=== PATIENT | female | born 1985 | race Caucasian/White ===

== ENCOUNTER 2024-12-07 15:19 | Emergency (ER) | payer OTHER, SELFPAY ==
[2024-12-07 15:19] VITALS: BMI 49.4
[2024-12-07 15:27] VITALS: BP 163/114
[2024-12-07 15:47] LABS: Urine Character Clear (Clear)
--- NOTE | 2024-12-07 16:00 | ED.GENMED ---
History of Present Illness
General
Chief Complaint: Crisis Evaluation
Source: patient
Exam Limitations: none
Time Seen by Provider: 12/07/24 15:39
Nursing documentation reviewed up to this point in time: agreed with
History of Present Illness
History of Present Illness:
39-year-old female with a past medical history of anxiety depression who presents to the emergency department for evaluation of suicidal ideation. Patient reports that she has had 'a tough couple of months' but does not feel comfortable sharing
specifically why things have been tough for her. She is willing to say however that she has had increasing depression and has had thoughts of self-harm to the point of suicide. She says that over the past few weeks she has been developing a plan
and has been composing orquideae notes mentally and when she realized how advanced her thoughts were she came to the emergency room for help. She says that she had plan to overdose on Cymbalta. She says she did not act on this plan and has not taken
any action towards self-harm recently. She does however report a past suicide attempt by overdose in 2009�she says that she did not tell anyone about this and when she woke up the next day went to work and did not seek help at the time. She does
see a therapist once a week and has a psychiatrist who prescribes her medications but she says that she does not know her psychiatrist very well. She says that she has been feeling fatigued but otherwise physically well. She denies any alcohol
use; she reports occasional edible marijuana use but no other drug use. Denies nicotine.
Review of Systems
Review of Systems
All Other Systems: ROS reviewed and negative except as documented in HPI and ROS
Constitutional: Reports fatigue
Respiratory: Denies trouble breathing
Cardiac: Denies chest pain
ABD/GI: Denies abdominal pain
: Denies flank pain
Musculoskeletal: Denies neck pain or back pain
Psychiatric: Reports depression, anxiety and suicidal
Phy Exam
Physical Exam
Physical Exam:
General: Awake, alert, oriented x3; no acute distress
Head: Normocephalic, atraumatic
Eyes: Conjunctiva normal, pupils equal round and reactive to light bilaterally, extraocular movements intact
Throat: Airway intact, handling secretions
Neck: Trachea midline, supple without meningismus
Lungs: Clear to auscultation bilaterally, no wheezing, rales, rhonchi
Heart: Tachycardia with regular rhythm, no murmurs, gallops, or rubs
Neuro: No gross deficits
Skin: Warm and dry, no rash
Extremities: Warm and well-perfused
Psych: Depressed mood, withdrawn affect
Scores
Heart Failure Risk
Heart Failure Risk Score: Not Applicable
Heart Score for Chest Pain Patients
STEMI patient?: Not applicable
Withdrawal Assessment of Alcohol
Withdrawal Assessment Completed?: Not applicable
Course
Orders/Labs/Results
Orders:
Orders
12/07/24 15:21
1:1 Observation - Suicide/ Violent Behavior As Directed
Crisis Consult Urgent
Reason for Consult: SI
12/07/24 15:27
Urinalysis Reflex To Culture Urgent
Date Specimen was Collected: 12/07/24
Time Specimen was Collected: 15:20
Urine Drug Abuse Screen Urgent
Date Specimen was Collected: 12/07/24
Time Specimen was Collected: 15:20
Urine Microscopic Reflex Cult Urgent
Urine Culture Urgent
ERENDIRA Source: U
Specimen Description:
Date Specimen was Collected: 12/07/24
Time Specimen was Collected: 15:20
12/07/24 15:42
ED Special Safety Observation ONCE
Observation level: One to One
Test Result ONCE
12/07/24 16:05
Electrocardiogram (*1) Urgent
Reason for Study: QTc Monitoring
EKG- Treatment ONCE
12/07/24 16:45
Acetaminophen Urgent
Alcohol Urgent
COVID-19 Antigen Urgent
Source: Nasal Swab
Complete Blood Count/With Diff Urgent
Comprehensive Metabolic Panel Urgent
Free T4 Urgent
HCG, Urine Qualitative Screen Urgent
Date Specimen was Collected: 12/07/24
Time Specimen was Collected: 15:50
Comment: in lab
Salicylate Urgent
TSH Reflex To Free T4 Urgent
12/07/24 17:31
Nitrofurantoin Monohydrate [Macrobid] 100 mg PO NOW STA
Abnormal Lab Results
12/07/24 12/07/24
15:27 16:45
WBC 13.5 H 10^3/uL
(4.8-10.8)
MCHC 32.5 L g/dL
(33.0-37.0)
MPV 11.2 H fL
(7.4-10.4)
Abs Immat Gran (auto) 0.1 H 10^3/uL
(0-0.05)
Absolute Neuts (auto) 10.8 H 10^3/uL
(1.4-6.5)
Neutrophils % 80.0 H %
(42.2-75.2)
Lymphocytes % 13.7 L %
(20.5-51.1)
TSH (Reflex) 0.33 L uIU/ml
(0.47-4.68)
Ur Occult Blood Reflex 4+ A
(Negative)
Leukocyte Esterase Rfl 1+ A
(Negative)
Urine RBC >100 A /HPF
(0-2)
Urine Bacteria (Reflex) Moderate A
(Negative)
Urine Albumin (Reflex) 1+ A
(Neg - Trace)
Salicylates < 1.0 L mg/dl
(2.0-20.0)
Acetaminophen < 10 L ug/ml
(10-30)
U Marijuana (THC) Screen Positive H
(Negative)
12/07/24 16:45
12/07/24 16:45
Vital Signs
Pulse: 96
Initial and Last Documented VS:
Initial Vital Signs
Temp Pulse Resp BP Pulse Ox
37.1 C 114 18 163/114 96
12/07/24 15:27 12/07/24 15:27 12/07/24 15:27 12/07/24 15:27 12/07/24 15:27
Last Documented Vital Signs
Temp Pulse Resp BP Pulse Ox
37.1 C 114 16 163/114 96
12/07/24 15:27 12/07/24 15:27 12/07/24 16:00 12/07/24 15:27 12/07/24 16:05
MDM/Problems Addressed
Differential Diagnosis Includes:
Suicidal ideation
MDM/Problems Addressed:
39-year-old female presents for evaluation of suicidal ideation with a plan to overdose as described above--denies any action towards this plan as of yet. Hypertensive and tachycardic otherwise normal vitals. Physical exam as above. Will check
labs including a CBC and CMP, Tylenol and salicylate levels, UA and UDS. Check alcohol level. Will check an hCG. Screening EKG. Will monitor on one-to-one observation. Discussed case with crisis for assessment�patient is willing to go for
inpatient treatment and I think this is the most appropriate plan for this patient.
Labs reviewed�she does have a slight leukocytosis, CMP no clinically significant abnormalities. Tylenol and salicylate levels negative. UDS positive for marijuana which patient admits to. Alcohol level negative. Her urinalysis was noted to be
positive for bacteria and some hematuria�likely contaminated but given that she does have a slight leukocytosis we will treat for UTI. She has had some dark urine recently but she attributed this to dehydration. Will treat with 5 days of Macrobid
and send urine culture. At this point she is medically cleared for psychiatric treatment. Updated crisis�it sounds like she has been accepted at [place], will arrange for transport. Continue to monitor.
Chronic conditions affecting care:
Depression and anxiety
Acute Exacerbation and/or Progression of Chronic Illness:
Acutely hypertensive likely related to anxiety�no indication for emergent antihypertensives
Acute Exacerbation and/or Progression of Chronic Illness: HTN
*Pulse Oximetry
SaO2: 96
Oxygen Mode of Delivery: Room air
Patient hypoxic: no (96%)
*EKG
Interpreted by ED Provider?: Yes
Heart Rate: 96
Rate: normal
Rhythm: sinus
Uneeda: normal axis
Interval: normal interval
QRS Pattern: normal QRS
Ischemia: no ischemia
*Critical Care Note
Total Time (30-74mins, 75-104mins- exclusive of procedures): Not Applicable
Data Reviewed
Source: patient
Patient Management
Discussion with other providers: Other (Discussed with crisis team)
Escalation/DeEscalation of care consider admission/obs:
Inpatient psychiatric treatment indicated
ED Attending Note
-
Portions of this chart may have been created with voice recognition software.� Occasional wrong word or��sound alike� substitutions may have occurred due to the inherent limitations of voice recognition software.
Discharge Plan
Departure
Patient Disposition: Psych Facility
Date of Disposition: 12/07/24
Time of Disposition: 16:05
Discharge Problem:
Suicidal ideations, UTI (urinary tract infection)
Prescriptions:
New
nitrofurantoin monohyd/m-cryst [Macrobid] 100 mg capsule
100 mg PO Q12H 5 Days Qty: 10 0RF
No Action
cetirizine [Zyrtec] 10 mg Tablet
10 mg PO DAILY
trazodone 100 mg Tablet
100 mg PO HS
duloxetine [Cymbalta] 60 mg Capsule,Delayed Release(Dr/Ec)
60 mg PO DAILY
Interventions
Interventions:
*Risk Screen - Suicide Last Done: 12/07/24 16:06
*General Assessment Last Done: 12/07/24 15:27
*Neglect/Abuse Screening Last Done: 12/07/24 15:27
*ED- Fall Risk Assessment Last Done: 12/07/24 16:06
*ED COVID-19 Vaccine History Last Done: 12/07/24 15:27
ED-Psychological Assessment Last Done: 12/07/24 16:06
Discharge Date and Time
Print Language: [id number]
[2024-12-07 16:05] LABS: Urine Red Blood Cell >100 /HPF (0-2); Urine Squamous Cell 16-20 /LPF (Few)
[2024-12-07 16:57] LABS: Hematocrit 41.5 % (37.0-47.0); Hemoglobin 13.5 g/dL (12.0-16.0); Mean Corp Hgb Conc. 32.5 g/dL (33.0-37.0); Mean Corpuscular Volume 86.5 fL (81.0-99.0); Nucleated Red Blood Cells % 0 %; Platelet Count 361 10^3/uL (130-400); Red Cell Dist. Width 13.0 % (11.5-14.5)
[2024-12-07 17:03] LABS: HCG, Urine Qualitative Screen Negative
[2024-12-07 17:12] LABS: COVID-19 Antigen Negative (Negative)
[2024-12-07 17:13] LABS: ALT (SGPT) 31 U/L (0-35); AST (SGOT) 19 U/L (14-36); Acetaminophen < 10 ug/ml (10-30); Albumin 4.7 g/dl (3.5-5.0); Alkaline Phosphatase 80 U/L (38-126); Blood Urea Nitrogen 17 mg/dl (7-17); Calcium 9.6 mg/dl (8.4-10.2); Carbon Dioxide 25 mmol/L (22-30); Chloride 107 mmol/L (98-107); Estimated Creatinine Clearance > 125 ml/min; Glucose 89 mg/dl (70-99); Potassium 4.3 mmol/L (3.5-5.1); Salicylate < 1.0 mg/dl (2.0-20.0); Sodium 138 mmol/L (135-145); Total Protein 8.0 g/dl (6.3-8.2); eGFR > 60.00
[2024-12-07] MEDS: MACROBID 100 MG PO (17:42)
[2024-12-07 19:00] VITALS: BP 141/98
== END 2024-12-07 19:09 ==
LOC: EMR 15:19
PROVIDERS: EMERGENCY PHYSICIAN Emergency Medicine
DX: R45.851 Suicidal ideations (principal); N39.0 Urinary tract infection, site not specified; F32.A Depression, unspecified; F41.9 Anxiety disorder, unspecified; Z91.51 Personal history of suicidal behavior
CPT/HCPCS: 99285; 80053; 80143; 80179; 80306; 81003; 81015; 81025; 82077; 84439; 84443; 85025; 87086; 87811; 93005